=== PATIENT | male | born 1970 | race Caucasian/White ===

== ENCOUNTER 2023-05-15 06:31 | Outpatient (CLI) | payer OTHER, SELFPAY ==
--- NOTE | 2023-05-15 07:44 | W.ANESCHARGE ---
Anesthesia Charges Start Date/Time Anesthesia Start Date: 05/15/23 Anesthesia Start Time: 07:18 Stop Date/Time Anesthesia Stop Date: 05/15/23 Anesthesia Stop Time: 07:40
--- NOTE | 2023-05-15 08:06 | W.ANESCHARGE ---
Anesthesia Charges Start Date/Time Anesthesia Start Date: 05/15/23 Anesthesia Start Time: 07:18 Stop Date/Time Anesthesia Stop Date: 05/15/23 Anesthesia Stop Time: 07:40
== END 2023-05-15 06:32 | disposition home or self-care (01) ==
LOC: OP CLINIC 06:34
PROVIDERS: PCP Physician Assistant Medical; Visit Provider Internal Medicine Gastroenterology
DX: Z12.11 Encounter for screening for malignant neoplasm of colon (principal); K63.5 Polyp of colon; Z83.719 Family history of colon polyps, unspecified
CPT/HCPCS: 00811; 45385; 88305; J2704